=== PATIENT | female | born 1960 | race Caucasian/White ===

== ENCOUNTER 2024-04-12 05:54 | Day surgery (SDC) | payer MEDICARE, MEDICAID ==
[2024-04-10 16:00] LABS: BASOPHILS # (AUTO) 0.1 X10'3 (0-0.2); BASOPHILS % (AUTO) 0.8 % (0-1); EOSINOPHILS # (AUTO) 0.2 X10'3 (0-0.9); EOSINOPHILS % (AUTO) 1.5 % (0-6); LYMPHOCYTES # (AUTO) 2.4 X10'3 (1.1-4.8); LYMPHOCYTES % (AUTO) 23.4 % (21-51); MEAN CORPUSCULAR HEMOGLOBIN 32.3 PG (27.0-31.0); MEAN CORPUSCULAR HGB CONC 34.6 g/dL (33.0-36.5); MEAN CORPUSCULAR VOLUME 93.4 FL (78-98); MEAN PLATELET VOLUME 8.6 FL (7.4-10.4); MONOCYTES # (AUTO) 0.6 X10'3 (0-0.9); NEUTROPHILS # (AUTO) 6.9 X10'3 (1.8-7.7); NEUTROPHILS % (AUTO) 68.3 % (42-75); PRE OP HEMATOCRIT 43.2 % (35.0-45.0); PRE OP HEMOGLOBIN 14.9 g/dL (12.0-16.0); PRE OP PLATELET COUNT 326 X10'3 (140-440); PRE OP WHITE BLOOD COUNT 10.1 10'3 (4.8-10.8); RED BLOOD COUNT 4.62 X10'6 (4.20-5.60); RED CELL DISTRIBUTION WIDTH 13.7 % (11.5-14.5)
[2024-04-10 16:07] LABS: ALBUMIN 3.5 G/DL (3.4-5.0); ALBUMIN/GLOBULIN RATIO 0.9 (1.1-1.5); ALKALINE PHOSPHATASE 82 IU/L (46-116); BLOOD UREA NITROGEN 9 MG/DL (7-18); BUN/CREATININE RATIO 12.7 (10.0-20.0); CALCIUM 9.2 MG/DL (8.5-10.1); CHLORIDE 101 MMOL/L (99-107); CREATININE 0.71 MG/DL (0.40-0.90); PRE OP ALT 13 U/L (30-65); PRE OP ANION GAP 10 (8-16); PRE OP AST 16 U/L (10-37); PRE OP BILIRUB, TOTAL 0.3 MG/DL (0.0-1.0); PRE OP GLUCOSE 97 MG/DL (70-104); PRE OP POTASSIUM 4.1 MMOL/L (3.4-5.1); PRE OP SODIUM 141 MMOL/L (135-145); TOTAL CARBON DIOXIDE 29.9 MMOL/L (24-32); TOTAL PROTEIN 7.4 G/DL (6.4-8.2); eGFR 83 ML/MIN
[~2024-04-12] VITALS: Ht 160 cm; Wt 51.1 kg
[2024-04-12] VITALS (14 sets, daily range): BP systolic 88–108; BP diastolic 47–57; PULSE 61–77; RESP 12–20; TEMP 97.3; O2SAT 91–100
[~2024-04-12 05:54] MED LIST: ATOR20TA66 PO; DOCUMENT DATE & TIME OF BETA-BLOCKER PO ONE; GABA-530 PO; LORA-269 PO; METO-395 PO; NIFE-72 PO; RAMI10CA78 PO; SERT-434 PO; TRAZ-256 PO
[2024-04-12] MEDS: famotidine 20mg tablet PO ONE (06:20)
[2024-04-12] MEDS: ringers solution, lacted 1,000 ML IV SCH (06:21)
[2024-04-12] MEDS ORDERED: fentaNYL/PF 50MCG/1 ML 2ML syringe ONE (07:51)
[2024-04-12] MEDS ORDERED: midazolam 1 mg/ML 2ml injection ONE (07:51)
[2024-04-12] MEDS ORDERED: propofol inj 20 ML IV ONE (07:51)
[2024-04-12] MEDS ORDERED: LIDOcaine 2% (20mg/ml) 5ml vial ONE (07:52)
[2024-04-12] MEDS ORDERED: rocuronium 10mg/ml inj IV ONE (07:52)
[2024-04-12] MEDS ORDERED: ondansetron/PF 4mg/2ml inj ONE (07:52)
[2024-04-12] MEDS ORDERED: dexamethasone sod phosphate 4mg/ml inj. ONE (07:52)
[2024-04-12] MEDS ORDERED: labetalol 20mg/4ml (5mg/ml) syringe IV PRN (07:55)
[2024-04-12] MEDS ORDERED: hydrALAZINE 20mg/ml inj. IV PRN (07:55)
[2024-04-12] MEDS ORDERED: ringers solution, lacted 1,000 ML IV SCH (07:55)
[2024-04-12] MEDS ORDERED: morphine 2 MG/ML inj. syringe IV PRN (07:55)
[2024-04-12] MEDS ORDERED: ondansetron/PF 4mg/2ml inj IV PRN (07:55)
[2024-04-12] MEDS ORDERED: fentaNYL/PF 50MCG/1 ML 2ML syringe IV PRN ×2 (07:55)
[2024-04-12] MEDS ORDERED: morphine 4 MG/ML inj SYRINge IV PRN (07:55)
[2024-04-12] MEDS ORDERED: sevoflurane 250ml liquid IH ONE (08:10)
[2024-04-12] MEDS ORDERED: ePHEDrine 50MG/ML INJ. ONE (08:41)
[2024-04-12] MEDS ORDERED: albumin (Human) 5% 250ml 250 ML IV ONE (08:51)
[2024-04-12] MEDS ORDERED: sugammadex 200mg/2ml injection IV ONE (08:55)
[2024-05-06] MEDS ORDERED: NICO-687 TOP (16:01)
[2024-05-06] MEDS ORDERED: [UNRECOGNIZED DRUG - OTHER] (16:01)
[2024-05-06] MEDS ORDERED: OXYGEN (16:01)
== END 2024-04-12 10:46 | disposition home or self-care (01) ==
LOC: PAS 05:54
PROVIDERS: ATTEND Internal Medicine Critical Care Medicine
DX: R91.8 Other nonspecific abnormal finding of lung field (principal); C34.11 Malignant neoplasm of upper lobe, right bronchus or lung; I10 Essential (primary) hypertension; F17.210 Nicotine dependence, cigarettes, uncomplicated; E78.5 Hyperlipidemia, unspecified; Z88.0 Allergy status to penicillin; Z88.6 Allergy status to analgesic agent; F41.8 Other specified anxiety disorders; Z79.899 Other long term (current) drug therapy; Z72.89 Other problems related to lifestyle
CPT/HCPCS: 31623; 31624; 31627; 31628; 31653; 36415; 71250; 80053; 82948; 85025; 87015; 87070; 87116; 87206; 88341; 88342; 93005; 94760; A4618; J1100; J2003; J2250; J2405; J2704; J3010; J3490; J7120; P9045; Z7506; Z7508; Z7512; Z7610; 31622; 31625; 31626; 31654; 88108; 88173; 88305

== ENCOUNTER 2024-05-10 05:51 | Inpatient (IN) | payer MEDICARE, MEDICAID ==
[2024-05-06 16:28] LABS: BASOPHILS # (AUTO) 0.1 X10'3 (0-0.2); EOSINOPHILS # (AUTO) 0.2 X10'3 (0-0.9); LYMPHOCYTES # (AUTO) 2.7 X10'3 (1.1-4.8); LYMPHOCYTES % (AUTO) 33.9 % (21-51); MEAN CORPUSCULAR VOLUME 94.2 FL (78-98); MEAN PLATELET VOLUME 8.8 FL (7.4-10.4); MONOCYTES # (AUTO) 0.7 X10'3 (0-0.9); MONOCYTES % (AUTO) 8.7 % (2-12); NEUTROPHILS # (AUTO) 4.4 X10'3 (1.8-7.7); NEUTROPHILS % (AUTO) 54.4 % (42-75); PRE OP HEMATOCRIT 42.6 % (35.0-45.0); PRE OP HEMOGLOBIN 14.5 g/dL (12.0-16.0); PRE OP PLATELET COUNT 293 X10'3 (140-440); PRE OP WHITE BLOOD COUNT 8.1 10'3 (4.8-10.8); RED BLOOD COUNT 4.52 X10'6 (4.20-5.60); RED CELL DISTRIBUTION WIDTH 13.4 % (11.5-14.5)
[2024-05-06 16:34] LABS: BILIRUBIN,URINE NEGATIVE (Neg); CLARITY,URINE CLEAR (Clear); COLOR,URINE YELLOW (Yellow); GLUCOSE, URINE NEGATIVE (Neg); KETONES,URINE TRACE mg/dl (Neg); LEUKOCYTE ESTERASE ,URINE NEGATIVE (Neg); NITRITES, URINE NEGATIVE (Neg); OCCULT BLOOD,URINE SMALL (Neg); PH,URINE 5.5 (4.8-8.0); PROTEIN,URINE NEGATIVE (Neg); UROBILINOGEN,URINE 0.2 E.U/dL (0.2-1.0)
[2024-05-06 16:35] LABS: UA COLLECTION TYPE CLN CATCH MIDSTREAM
[2024-05-06 16:39] LABS: PRE OP PROTIME 10.7 SECONDS (9.0-12.0)
[2024-05-06 16:40] LABS: ALBUMIN 3.3 G/DL (3.4-5.0); ALBUMIN/GLOBULIN RATIO 0.9 (1.1-1.5); ALKALINE PHOSPHATASE 88 IU/L (46-116); BLOOD UREA NITROGEN 9 MG/DL (7-18); CALCIUM 8.8 MG/DL (8.5-10.1); CHLORIDE 103 MMOL/L (99-107); CREATININE 0.69 MG/DL (0.40-0.90); PRE OP ALT 18 U/L (30-65); PRE OP ANION GAP 9 (8-16); PRE OP AST 15 U/L (10-37); PRE OP BILIRUB, TOTAL 0.3 MG/DL (0.0-1.0); PRE OP GLUCOSE 84 MG/DL (70-104); PRE OP SODIUM 140 MMOL/L (135-145); TOTAL CARBON DIOXIDE 27.7 MMOL/L (24-32); TOTAL PROTEIN 6.9 G/DL (6.4-8.2); eGFR 86 ML/MIN
[2024-05-06 16:43] LABS: RBC,URINE 0-2 /HPF (0-2); SQUAMOUS EPITHELIAL CELL,UR FEW /LPF (FEW); WBC,URINE NONE SEEN /HPF (0-4)
[2024-05-06 16:44] LABS: BACTERIA,URINE NONE SEEN /HPF (Neg)
[2024-05-07 11:02] LABS: ABG BASE EXCESS 0.6 mmol/L (-2.0-3.0); ABG HCO3 24.4 mmol/L (21.0-28.0); ABG OXYGEN SATURATION 96.4 % (94.0-98.0); ABG PCO2 (T) 36.7 mmHg (32.0-45.0); ABG PH (T) 7.441 (7.350-7.450); ABG PO2 (T) 86.8 mmHg (83.0-108.0); ALLEN'S TEST POSITIVE; FCOHb 4.5 % (0.5-1.5); FHHb 3.4 % (0.0-5.0); FMetHb 0.3 % (0.0-1.5); FO2Hb 91.8 % (94.0-98.0); TOTAL HEMOGLOBIN 14.8 G/dl (12.0-16.0)
[~2024-05-10] VITALS: Ht 160 cm; Wt 49.9 kg
[2024-05-10] VITALS (28 sets, daily range): BP systolic 89–113; BP diastolic 52–71; PULSE 65–85; RESP 12–18; TEMP 97.2; O2SAT 92–100
[2024-05-10] MEDS: DOCUMENT DATE & TIME OF BETA-BLOCKER PO ONE (05:00)
[~2024-05-10 05:51] MED LIST changes: -DOCUMENT DATE & TIME OF BETA-BLOCKER PO ONE; +NICO-687 TOP; +OXYGEN
[2024-05-10] MEDS: famotidine 20mg tablet PO ONE (06:48)
[2024-05-10] MEDS: ringers solution, lacted 1,000 ML IV SCH ×2 (06:49→08:15)
[2024-05-10] MEDS ORDERED: INDOCYANINE GREEN 25 MG/10 ML VIAL IV ONE (06:52)
[2024-05-10] MEDS ORDERED: BUPIVAcaine 2.5mg/ml inj 50ml vial (contains preservative) ONE (06:52)
[2024-05-10] MEDS ORDERED: LIDOcaine 1% (10mg/ml) 2ml vial ONE (06:52)
[2024-05-10] MEDS ORDERED: BUPIVACAINE liposomal/PF 13.3 MG/ML 10mL vial IM ONE (06:52)
[2024-05-10] MEDS ORDERED: ceFAZolin 2gm in dextrose, iso 50 ML IV ONE (07:15)
[2024-05-10] MEDS: clindamycin-Cleocin 900mg/D5W 50 ML IV ONE (07:30)
[2024-05-10] MEDS ORDERED: NORepinephrine 8mg/ 250ml NS 250 ML IV ONE (07:52)
[2024-05-10] MEDS ORDERED: midazolam 1 mg/ML 2ml injection ONE (07:53)
[2024-05-10] MEDS ORDERED: propofol inj 20 ML IV ONE (07:53)
[2024-05-10] MEDS ORDERED: fentaNYL /PF 50mcg/ml 5ml ampule ONE (07:53)
[2024-05-10] MEDS ORDERED: proCHLORperazine 10 MG/2 ml inj IV PRN (08:15)
[2024-05-10] MEDS ORDERED: morphine 4 MG/ML inj SYRINge IV PRN (08:15)
[2024-05-10] MEDS ORDERED: morphine 2 MG/ML inj. syringe IV PRN ×2 (08:15→12:10)
[2024-05-10] MEDS ORDERED: ondansetron/PF 4mg/2ml inj IV PRN ×2 (08:15→12:10)
[2024-05-10] MEDS ORDERED: meperidine/PF 25mg/ml syringe IV PRN ×3 (08:15)
[2024-05-10] MEDS ORDERED: sevoflurane 250ml liquid IH ONE (08:21)
[2024-05-10] MEDS ORDERED: dexamethasone sod phosphate 4mg/ml inj. ONE (09:35)
[2024-05-10] MEDS ORDERED: albumin (Human) 5% 250ml 250 ML IV ONE ×2 (09:35)
[2024-05-10] MEDS ORDERED: rocuronium 10mg/ml inj IV ONE ×2 (09:35)
[2024-05-10] MEDS ORDERED: acetaminophen 1,000mg/100ml IV 100 ML IV ONE (11:07)
[2024-05-10] MEDS ORDERED: sugammadex 200mg/2ml injection IV ONE (11:42)
[2024-05-10] MEDS ORDERED: HYDROcodone/acetaminophen 10/325mg tab PO PRN (12:10)
[2024-05-10] MEDS ORDERED: metoclopramide 5 mg/ml inj IV PRN (12:10)
[2024-05-10 12:30] LABS: ABG BASE EXCESS -4.6 mmol/L (-2.0-3.0); ABG HCO3 30.1 mmol/L (21.0-28.0); ABG OXYGEN SATURATION 99.1 % (94.0-98.0); ABG PCO2 (T) 120.1 mmHg (32.0-45.0); ABG PH (T) 7.008 (7.350-7.450); ABG PO2 (T) 193.5 mmHg (83.0-108.0); FCOHb 1.7 % (0.5-1.5); FHHb 0.9 % (0.0-5.0); FLOW 10 L/min; FO2Hb 97.4 % (94.0-98.0); MODE MASK - SIMPLE; PATIENT TEMPERATURE 35.7; TOTAL HEMOGLOBIN 13.4 G/dl (12.0-16.0)
[2024-05-10 13:17] LABS: ABG BASE EXCESS -5.1 mmol/L (-2.0-3.0); ABG HCO3 25.7 mmol/L (21.0-28.0); ABG OXYGEN SATURATION 93.5 % (94.0-98.0); ABG PCO2 (T) 75.8 mmHg (32.0-45.0); ABG PH (T) 7.143 (7.350-7.450); ABG PO2 (T) 79.6 mmHg (83.0-108.0); FCOHb 1.8 % (0.5-1.5); FHHb 6.4 % (0.0-5.0); FLOW 2 L/min; FMetHb 0.3 % (0.0-1.5); FO2Hb 91.5 % (94.0-98.0); MODE NASAL CANNULA; PATIENT TEMPERATURE 36.2; TOTAL HEMOGLOBIN 13.6 G/dl (12.0-16.0)
[2024-05-10 14:29] LABS: ABG BASE EXCESS -0.7 mmol/L (-2.0-3.0); ABG HCO3 26.8 mmol/L (21.0-28.0); ABG OXYGEN SATURATION 91.2 % (94.0-98.0); ABG PH (T) 7.301 (7.350-7.450); ABG PO2 (T) 58.6 mmHg (83.0-108.0); ALLEN'S TEST POSITIVE; FCOHb 1.7 % (0.5-1.5); FHHb 8.6 % (0.0-5.0); FMetHb 0.3 % (0.0-1.5); FO2Hb 89.4 % (94.0-98.0); MODE ROOM AIR; PATIENT TEMPERATURE 36.2; TOTAL HEMOGLOBIN 13.1 G/dl (12.0-16.0)
[2024-05-10] MEDS: clindamycin 600mg/D5W 50ml 50 ML IV SCH (14:34)
[2024-05-10] MEDS: HYDROcodone/acetaminophen 10/325mg tab PO PRN (19:35)
[2024-05-10] MEDS: gabapentin 300mg capsule PO SCH (19:35)
[2024-05-10] MEDS: potassium Cl 20mEq in D5-NS 1,000 ML IV SCH (19:43)
[2024-05-11] VITALS (13 sets, daily range): BP systolic 94–131; BP diastolic 44–69; PULSE 54–82; RESP 12–24; TEMP 97.5–98; O2SAT 90–97
[2024-05-11 06:15] LABS: BASOPHILS % (AUTO) 0.2 % (0-1); EOSINOPHILS % (AUTO) 0.2 % (0-6); HEMATOCRIT 36.7 % (35.0-45.0); HEMOGLOBIN 12.5 g/dl (12.0-16.0); LYMPHOCYTES # (AUTO) 1.8 X10'3 (1.1-4.8); LYMPHOCYTES % (AUTO) 13.5 % (21-51); MEAN CORPUSCULAR HEMOGLOBIN 32.1 PG (27.0-31.0); MEAN CORPUSCULAR HGB CONC 34.1 g/dL (33.0-36.5); MEAN CORPUSCULAR VOLUME 94.2 FL (78-98); MEAN PLATELET VOLUME 8.6 FL (7.4-10.4); MONOCYTES # (AUTO) 0.9 X10'3 (0-0.9); MONOCYTES % (AUTO) 6.6 % (2-12); NEUTROPHILS # (AUTO) 10.9 X10'3 (1.8-7.7); NEUTROPHILS % (AUTO) 79.5 % (42-75); PLATELET COUNT 211 X10'3 (140-440); RED BLOOD COUNT 3.89 X10'6 (4.20-5.60); RED CELL DISTRIBUTION WIDTH 13.2 % (11.5-14.5); WHITE BLOOD COUNT 13.7 X10'3 (4.5-11.0)
[2024-05-11 06:30] LABS: ALANINE AMINOTRANSFERASE 19 U/L (12-78); ALKALINE PHOSPHATASE 61 IU/L (46-116); ANION GAP 3 (8-16); ASPARTATE AMINO TRANSFERASE 28 U/L (10-37); BILIRUBIN,TOTAL 0.5 MG/DL (0.1-1.0); BLOOD UREA NITROGEN 10 MG/DL (7-18); BUN/CREATININE RATIO 14.9 (10.0-20.0); CALCIUM 7.9 MG/DL (8.5-10.1); CHLORIDE 104 MMOL/L (99-107); CREATININE 0.67 MG/DL (0.40-0.90); GLUCOSE 107 MG/DL (70-104); PHOSPHORUS 2.7 MG/DL (2.3-4.5); POTASSIUM 4.4 MMOL/L (3.5-5.1); SODIUM 138 MMOL/L (135-145); TOTAL CARBON DIOXIDE 30.6 MMOL/L (24-32); TOTAL PROTEIN 6.1 G/DL (6.4-8.2); eCRCL 69 ML/MIN; eGFR 89 ML/MIN
[2024-05-11] MEDS: ketorolac trometh 30MG/ML vial 30 MG/ML VIAL IV PRN (06:33)
[2024-05-11] MEDS: metoprolol succinate 25mg (24-HOUR) SR. Tablet PO SCH (10:55)
[2024-05-11] MEDS: nicotine 21mg patch - 24 hr TD SCH (10:55)
[2024-05-11] MEDS: sertraline 50mg tablet PO SCH (10:56)
[2024-05-11] MEDS: atorvastatin 20mg tablet PO SCH (10:56)
[2024-05-11] MEDS: NIFEdipine XL 30mg tablet PO SCH (10:56)
[2024-05-11] MEDS: LORazepam 1 MG tablet PO PRN (10:56)
[2024-05-11] MEDS: albuterol 2.5 MG/3 ML nebule NEB PRN (17:48)
[2024-05-11] MEDS: gabapentin 300mg capsule PO SCH (19:15)
[2024-05-11] MEDS: traZODone 50mg tablet PO SCH (19:22)
[2024-05-11] MEDS: HYDROmorphone inj. 0.5 MG/0.5 ML DISP.SYRIN IV PRN (21:52)
[2024-05-12] VITALS (8 sets, daily range): BP systolic 92–129; BP diastolic 55–72; PULSE 62–86; RESP 16–22; TEMP 97.4–97.6; O2SAT 94–98
[2024-05-12 06:18] LABS: BASOPHILS % (AUTO) 0.4 % (0-1); EOSINOPHILS # (AUTO) 0.1 X10'3 (0-0.9); EOSINOPHILS % (AUTO) 0.7 % (0-6); HEMATOCRIT 36.9 % (35.0-45.0); HEMOGLOBIN 12.4 g/dl (12.0-16.0); LYMPHOCYTES # (AUTO) 1.4 X10'3 (1.1-4.8); LYMPHOCYTES % (AUTO) 14.9 % (21-51); MEAN CORPUSCULAR HEMOGLOBIN 31.7 PG (27.0-31.0); MEAN CORPUSCULAR HGB CONC 33.6 g/dL (33.0-36.5); MEAN CORPUSCULAR VOLUME 94.3 FL (78-98); MEAN PLATELET VOLUME 8.8 FL (7.4-10.4); MONOCYTES # (AUTO) 0.7 X10'3 (0-0.9); MONOCYTES % (AUTO) 7.7 % (2-12); NEUTROPHILS % (AUTO) 76.3 % (42-75); PLATELET COUNT 182 X10'3 (140-440); RED BLOOD COUNT 3.91 X10'6 (4.20-5.60); RED CELL DISTRIBUTION WIDTH 13.2 % (11.5-14.5); WHITE BLOOD COUNT 9.2 X10'3 (4.5-11.0)
[2024-05-12 06:55] LABS: ALANINE AMINOTRANSFERASE 20 U/L (12-78); ALBUMIN 2.7 G/DL (3.4-5.0); ALBUMIN/GLOBULIN RATIO 0.8 (1.1-1.5); ALKALINE PHOSPHATASE 60 IU/L (46-116); ANION GAP 6 (8-16); ASPARTATE AMINO TRANSFERASE 24 U/L (10-37); BILIRUBIN,TOTAL 0.5 MG/DL (0.1-1.0); BLOOD UREA NITROGEN 11 MG/DL (7-18); CALCIUM 8.2 MG/DL (8.5-10.1); CHLORIDE 107 MMOL/L (99-107); CREATININE 0.55 MG/DL (0.40-0.90); GLUCOSE 114 MG/DL (70-104); MAGNESIUM 1.7 MG/DL (1.5-2.4); PHOSPHORUS 2.9 MG/DL (2.3-4.5); POTASSIUM 3.9 MMOL/L (3.5-5.1); SODIUM 141 MMOL/L (135-145); TOTAL CARBON DIOXIDE 27.8 MMOL/L (24-32); TOTAL PROTEIN 5.9 G/DL (6.4-8.2); eCRCL 84 ML/MIN; eGFR > 90 ML/MIN
[2024-05-13] VITALS (10 sets, daily range): BP systolic 97–114; BP diastolic 46–65; PULSE 58–73; RESP 14–20; TEMP 97.4–97.9; O2SAT 94–100
[2024-05-13 06:38] LABS: BASOPHILS % (AUTO) 0.5 % (0-1); EOSINOPHILS # (AUTO) 0.1 X10'3 (0-0.9); EOSINOPHILS % (AUTO) 1.6 % (0-6); HEMATOCRIT 36.3 % (35.0-45.0); HEMOGLOBIN 12.5 g/dl (12.0-16.0); LYMPHOCYTES # (AUTO) 1.3 X10'3 (1.1-4.8); LYMPHOCYTES % (AUTO) 15.3 % (21-51); MEAN CORPUSCULAR HEMOGLOBIN 32.2 PG (27.0-31.0); MEAN CORPUSCULAR HGB CONC 34.3 g/dL (33.0-36.5); MEAN CORPUSCULAR VOLUME 93.7 FL (78-98); MEAN PLATELET VOLUME 9.2 FL (7.4-10.4); MONOCYTES # (AUTO) 0.8 X10'3 (0-0.9); NEUTROPHILS # (AUTO) 6.1 X10'3 (1.8-7.7); NEUTROPHILS % (AUTO) 72.6 % (42-75); PLATELET COUNT 179 X10'3 (140-440); RED BLOOD COUNT 3.88 X10'6 (4.20-5.60); RED CELL DISTRIBUTION WIDTH 13.2 % (11.5-14.5); WHITE BLOOD COUNT 8.4 X10'3 (4.5-11.0)
[2024-05-13 07:19] LABS: ALANINE AMINOTRANSFERASE 18 U/L (12-78); ALBUMIN 2.3 G/DL (3.4-5.0); ALBUMIN/GLOBULIN RATIO 0.7 (1.1-1.5); ALKALINE PHOSPHATASE 64 IU/L (46-116); ANION GAP 6 (8-16); ASPARTATE AMINO TRANSFERASE 21 U/L (10-37); BILIRUBIN,TOTAL 0.7 MG/DL (0.1-1.0); BLOOD UREA NITROGEN 6 MG/DL (7-18); CALCIUM 8.2 MG/DL (8.5-10.1); CHLORIDE 107 MMOL/L (99-107); CREATININE 0.46 MG/DL (0.40-0.90); GLUCOSE 112 MG/DL (70-104); MAGNESIUM 1.2 MG/DL (1.5-2.4); PHOSPHORUS 3.2 MG/DL (2.3-4.5); POTASSIUM 3.7 MMOL/L (3.5-5.1); SODIUM 140 MMOL/L (135-145); TOTAL CARBON DIOXIDE 26.8 MMOL/L (24-32); TOTAL PROTEIN 5.7 G/DL (6.4-8.2); eCRCL 100 ML/MIN; eGFR > 90 ML/MIN
[2024-05-13] MEDS: morphine 4 MG/ML inj SYRINge IV PRN (18:26)
[2024-05-13] MEDS ORDERED: magnesium sulf-water 2g/50mL 50 ML IV PRN (20:10)
[2024-05-13] MEDS ORDERED: magnesium sulf-water 4G/100mL 100 ML IV PRN (20:10)
[2024-05-14] VITALS (9 sets, daily range): BP systolic 96–121; BP diastolic 48–62; PULSE 54–72; RESP 13–24; TEMP 97.1–99; O2SAT 92–97
[2024-05-14] MEDS: magnesium Cl slow-release 64mg tablet PO PRN (05:40)
[2024-05-14 06:49] LABS: BASOPHILS % (AUTO) 0.6 % (0-1); EOSINOPHILS # (AUTO) 0.2 X10'3 (0-0.9); EOSINOPHILS % (AUTO) 2.4 % (0-6); HEMATOCRIT 38.4 % (35.0-45.0); LYMPHOCYTES # (AUTO) 2.1 X10'3 (1.1-4.8); LYMPHOCYTES % (AUTO) 24.6 % (21-51); MEAN CORPUSCULAR HEMOGLOBIN 31.8 PG (27.0-31.0); MEAN CORPUSCULAR HGB CONC 33.9 g/dL (33.0-36.5); MEAN CORPUSCULAR VOLUME 93.7 FL (78-98); MEAN PLATELET VOLUME 9.5 FL (7.4-10.4); MONOCYTES # (AUTO) 0.8 X10'3 (0-0.9); MONOCYTES % (AUTO) 9.3 % (2-12); NEUTROPHILS # (AUTO) 5.4 X10'3 (1.8-7.7); NEUTROPHILS % (AUTO) 63.1 % (42-75); PLATELET COUNT 229 X10'3 (140-440); RED CELL DISTRIBUTION WIDTH 12.9 % (11.5-14.5); WHITE BLOOD COUNT 8.6 X10'3 (4.5-11.0)
[2024-05-14 08:00] LABS: ALANINE AMINOTRANSFERASE 18 U/L (12-78); ALBUMIN 2.4 G/DL (3.4-5.0); ALBUMIN/GLOBULIN RATIO 0.6 (1.1-1.5); ALKALINE PHOSPHATASE 65 IU/L (46-116); ANION GAP 5 (8-16); ASPARTATE AMINO TRANSFERASE 15 U/L (10-37); BILIRUBIN,TOTAL 0.5 MG/DL (0.1-1.0); BLOOD UREA NITROGEN 8 MG/DL (7-18); BUN/CREATININE RATIO 14.5 (10.0-20.0); CALCIUM 8.3 MG/DL (8.5-10.1); CHLORIDE 104 MMOL/L (99-107); CREATININE 0.55 MG/DL (0.40-0.90); GLUCOSE 102 MG/DL (70-104); MAGNESIUM 1.5 MG/DL (1.5-2.4); PHOSPHORUS 3.5 MG/DL (2.3-4.5); POTASSIUM 3.5 MMOL/L (3.5-5.1); SODIUM 137 MMOL/L (135-145); TOTAL CARBON DIOXIDE 27.9 MMOL/L (24-32); TOTAL PROTEIN 6.1 G/DL (6.4-8.2); eCRCL 84 ML/MIN; eGFR > 90 ML/MIN
[2024-05-14] MEDS: K and/or MAG REPLACEMENT MC SCH (08:00)
[2024-05-15 02:38] VITALS: BP 116/65; PULSE 70; RESP 8; TEMP 96.7; O2SAT 93
[2024-05-15 06:00] VITALS: BP 117/70; PULSE 67; RESP 18; TEMP 97.9; O2SAT 100
[2024-05-15 06:30] VITALS: O2SAT 96
[2024-05-15 06:53] LABS: EOSINOPHILS # (AUTO) 0.2 X10'3 (0-0.9); EOSINOPHILS % (AUTO) 2.7 % (0-6); HEMOGLOBIN 12.7 g/dl (12.0-16.0); MEAN CORPUSCULAR VOLUME 92.9 FL (78-98)
[2024-05-15 06:58] LABS: BASOPHILS % (AUTO) 0.5 % (0-1); HEMATOCRIT 36.8 % (35.0-45.0); LYMPHOCYTES # (AUTO) 1.7 X10'3 (1.1-4.8); LYMPHOCYTES % (AUTO) 21.2 % (21-51); MEAN CORPUSCULAR HEMOGLOBIN 32.1 PG (27.0-31.0); MEAN CORPUSCULAR HGB CONC 34.6 g/dL (33.0-36.5); MEAN PLATELET VOLUME 9.5 FL (7.4-10.4); MONOCYTES # (AUTO) 0.8 X10'3 (0-0.9); MONOCYTES % (AUTO) 9.9 % (2-12); NEUTROPHILS # (AUTO) 5.4 X10'3 (1.8-7.7); NEUTROPHILS % (AUTO) 65.7 % (42-75); PLATELET COUNT 249 X10'3 (140-440); RED BLOOD COUNT 3.96 X10'6 (4.20-5.60); RED CELL DISTRIBUTION WIDTH 13.1 % (11.5-14.5); WHITE BLOOD COUNT 8.2 X10'3 (4.5-11.0)
[2024-05-15 07:45] LABS: ALANINE AMINOTRANSFERASE 19 U/L (12-78); ALBUMIN 2.3 G/DL (3.4-5.0); ALBUMIN/GLOBULIN RATIO 0.7 (1.1-1.5); ALKALINE PHOSPHATASE 61 IU/L (46-116); ANION GAP 8 (8-16); ASPARTATE AMINO TRANSFERASE 18 U/L (10-37); BILIRUBIN,TOTAL 0.5 MG/DL (0.1-1.0); BLOOD UREA NITROGEN 8 MG/DL (7-18); BUN/CREATININE RATIO 14.8 (10.0-20.0); CALCIUM 8.4 MG/DL (8.5-10.1); CHLORIDE 104 MMOL/L (99-107); CREATININE 0.54 MG/DL (0.40-0.90); GLUCOSE 103 MG/DL (70-104); PHOSPHORUS 3.9 MG/DL (2.3-4.5); POTASSIUM 3.7 MMOL/L (3.5-5.1); SODIUM 138 MMOL/L (135-145); TOTAL PROTEIN 5.7 G/DL (6.4-8.2); eCRCL 85 ML/MIN; eGFR > 90 ML/MIN
[2024-05-15 08:42] LABS: MAGNESIUM 1.7 MG/DL (1.5-2.4)
[2024-05-15 12:00] VITALS: BP 118/56; PULSE 61; RESP 19; TEMP 96.2; O2SAT 97
[2024-05-15 14:14] VITALS: PULSE 69; RESP 18; O2SAT 99
[2024-05-15 15:00] VITALS: BP 105/56; PULSE 68; RESP 20; TEMP 96.7; O2SAT 97
== END 2024-05-15 17:22 | disposition home or self-care (01) | DRG 164 ==
LOC: PAS IN 05:51 → PCU 3S 15:35
PROVIDERS: ADMIT Surgery; ATTEND Surgery
PROC: 8E0W4CZ Robotic Assisted Procedure of Trunk Region, Percutaneous Endoscopic Approach (ICD-10-PCS; 2024-05-10)
PROC: 0W9930Z Drainage of Right Pleural Cavity with Drainage Device, Percutaneous Approach (ICD-10-PCS; 2024-05-10)
PROC: 0BBC4ZZ Excision of Right Upper Lung Lobe, Percutaneous Endoscopic Approach (ICD-10-PCS; 2024-05-10)
PROC: 07B74ZZ Excision of Thorax Lymphatic, Percutaneous Endoscopic Approach (ICD-10-PCS; 2024-05-10)
PROC: 0BBF4ZZ Excision of Right Lower Lung Lobe, Percutaneous Endoscopic Approach (ICD-10-PCS; principal; 2024-05-10 08:21)
DX: C34.11 Malignant neoplasm of upper lobe, right bronchus or lung (principal); C34.31 Malignant neoplasm of lower lobe, right bronchus or lung; Z88.0 Allergy status to penicillin; Z88.5 Allergy status to narcotic agent
CPT/HCPCS: 36415; 36600; 71045; 80053; 81001; 82803; 82948; 83735; 84100; 85018; 85025; 85610; 85730; 86885; 86900; 86901; 87081; 88305; 88309; 88331; 94640; 94760; 97116; 97161; 97530; A4615; A4618; A4620; A6223; A6258; A6402; A6449; A7000; A7048; C9250; G0378; J0131; J0666; J1100; J1171; J1885; J2003; J2250; J2270; J2704; J3010; J3480; J3490; J7030; J7120; P9045